=== PATIENT | female | born 1980 | race Caucasian/White ===

== ENCOUNTER 2017-08-28 22:48 | Inpatient (IN) | payer SELFPAY ==
[~2017-08-28] VITALS: Ht 157.5 cm; Wt 99.8 kg
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
[2017-08-28 22:50] VITALS: BP 119/73
--- NOTE | 2017-08-28 23:00 | NUR ---
Pt in bed resting. cooperative. verbally combative but managable. vss.
[2017-08-28] MEDS ORDERED: OLAN20TA1 PO (23:07)
[2017-08-28] MEDS ORDERED: [UNRECOGNIZED DRUG - CODE] PO (23:07)
[2017-08-28] MEDS ORDERED: ALBUTEROL 0.083% 2.5 MG/3 ML NEBU INH ONE (23:25)
[2017-08-28] MEDS ORDERED: PHE25S RC (23:47)
[2017-08-28] MEDS ORDERED: ACET-2858 PO (23:47)
--- NOTE | 2017-08-29 | NUR ---
Pt in bed resting. Food provided. Pt cooperative and calm. VSS. Continue to monitor.
[2017-08-29 00:09] LABS: BASOPHILS # (AUTO) 0.1 K/uL (0.00-0.22); BASOPHILS % (AUTO) 0.7 % (0.0-2.0); EOSINOPHILS # (AUTO) 0.2 K/uL (0-0.4); EOSINOPHILS % (AUTO) 1.9 % (0.0-4.0); HEMATOCRIT 37.7 % (36-48); HEMOGLOBIN 12.5 g/dL (12.0-16.0); LYMPHOCYTES # (AUTO) 2.3 K/uL (2.5-16.5); LYMPHOCYTES % (AUTO) 28.8 % (20.5-51.1); MEAN CORPUSCULAR HEMOGLOBIN 29 pg (27-31); MEAN CORPUSCULAR HGB CONC 33 g/dL (33-37); MEAN CORPUSCULAR VOLUME 87.6 fL (80-94); MONOCYTES # (AUTO) 0.6 K/uL (0.8-1.0); MONOCYTES % (AUTO) 7.5 % (1.7-9.3); NEUTROPHILS # (AUTO) 4.8 K/uL (1.8-7.7); NEUTROPHILS % (AUTO) 61.1 % (42.2-75.2); PLATELET COUNT (AUTO) 243 K/uL (140-450); RED CELL DISTRIBUTION WIDTH 15.3 % (11.6-13.7); WHITE BLOOD COUNT (AUTO) 7.9 K/uL (4.8-10.8)
[2017-08-29 00:17] LABS: ANION GAP 15.5 (8-16); CARBON DIOXIDE 24.6 mmol/L (21-32); CHLORIDE 106 mmol/L (98-107); CREATININE 0.9 mg/dL (0.6-1.3); GFR ARICAN-AMERICAN 90 mL/min (>90); GLUCOSE 73 mg/dL (74-106); POTASSIUM 4.1 mmol/L (3.5-5.1); SODIUM SERUM 142 mmol/L (136-145); UREA NITROGEN, BLOOD 20 mg/dL (7-18)
[2017-08-29 00:22] LABS: ALBUMIN 3.6 g/dL (3.4-5.0); ASPARTATE AMINOTRANSFERASE 17 U/L (15-37); TOTAL BILIRUBIN 0.2 mg/dL (0.0-1.0)
[2017-08-29 00:23] LABS: ACETAMINOPHEN < 0.5 ug/ml (10-30); SALICYLATE < 2.8 mg/dL (2.8-20.0)
--- NOTE | 2017-08-29 01:00 | NUR ---
Pt provided urine sample. Pt states she has no desire to harm herself. Pt remains cooperative and calm. In bed resting. VSS. Continue to monitor.
[2017-08-29 01:11] LABS: BARBITURATE, URINE NEG. ng/ml (NEG <=200); BENZODIAZEPINE, URINE NEG. ng/mL (NEG <=200); CANNABINOID, URINE NEG. ng/mL (NEG <=50); COCAINE, URINE NEG. ng/mL (NEG <=300); OPIATE, URINE NEG. ng/mL (NEG <=2000); PHENCYCLIDINE SCREEN,URINE NEG. ng/mL (NEG <=25)
--- NOTE | 2017-08-29 02:19 | NUR ---
Patient appears to be resting comfortably in bed. Vital Signs within normal limits. Respirations even and unlabored.
--- NOTE | 2017-08-29 02:22 | NUR ---
PT. EATING CRACKERS AT BED SIDE, NO S/SX OF DISTRESS AT THIS TIME.
--- NOTE | 2017-08-29 03:00 | NUR ---
Pt resting with eyes closed. VSS. ER MD aware. Continue to monitor.
--- NOTE | 2017-08-29 03:26 | NUR ---
FAXED PACKET to [facility] intake confirmed FAx recieved , MARY fabric finisher Charge nurse made aware, At this time there are no beds available.
--- NOTE | 2017-08-29 04:04 | NUR ---
Pt resting with eyes closed. VSS. ER MD aware. Continue to monitor.
--- NOTE | 2017-08-29 05:00 | NUR ---
Pt resting with eyes closed. VSS. ER MD aware. Continue to monitor.
[2017-08-29] MEDS ORDERED: ONDANSETRON 4 MG/2 ML VIAL IVP PRN (06:05)
[2017-08-29] MEDS ORDERED: ACETAMINOPHEN 325 MG TAB PO PRN (06:05)
--- NOTE | 2017-08-29 06:47 | NUR ---
Pt refused IV insertion inpreperation for admission. ER MD notified. VSS. Continue to monitor.
--- NOTE | 2017-08-29 07:00 | NUR ---
ADMITTED A FEMALE PT, PT IS ON WHEELCHAIR, AWAKE, ALERT, CALM,AND OBEYS COMMAND. RECEIVED REPORT FROM ER NURSE. POSITIONED PT COMFORTABLE ON THE BED, BED ALARM INITIATED, PT WAS PUT ON A 1:1 SITTER. PT REFUSED TO HAVE VITAL SIGNS TAKEN. PT REFUSED TO ANSWER TO SOME ADMITTING QUESTIONS. NO SIGNS OF DISTRESS NOTED AT THIS TIME. WILL CONTINUE TO MONITOR.
[2017-08-29 07:05] VITALS: BP 91/62
--- NOTE | 2017-08-29 07:05 | NUR ---
Report given and care transfered to [facility] room 109B. Transported via wheel chair with VSS.
--- NOTE | 2017-08-29 08:00 | NUR ---
PT IS LYING ON THE BED WITH A SITTER ON THE BEDSIDE. PT REFUSED TO TAKE HER MEDICATION, COLACE. NO SIGNS OF DISTRESS NOTED AT THIS TIME. WILL CONTINUE TO MONITOR.
--- NOTE | 2017-08-29 08:26 | NUR ---
PT REFUSES EKG
--- NOTE | 2017-08-29 08:31 | NUR ---
[facility] aware of patient and will assist with placement. Packet faxed to [facility] for review. [facility] will continue to follow up.
[2017-08-29] MEDS ORDERED: DOCUSATE SODIUM 100 MG GELCAP PO SCH (09:00)
[2017-08-29 09:54] LABS: APPEARANCE,URINE SL CLOUDY (CLEAR); BILIRUBIN,URINE NEGATIVE (NEGATIVE); BLOOD, URINE NEGATIVE (NEGATIVE); COLOR,URINE YELLOW (YELLOW); LEUKOCYTE ESTERASE ,URINE 2+ (NEGATIVE); NITRITE, URINE NEGATIVE (NEGATIVE); UGLUCOSE NEGATIVE (NEGATIVE)
--- NOTE | 2017-08-29 10:00 | NUR ---
PT IS ASLEEP ON THE BED WITH THE SITTER ON THE BEDSIDE. NO SIGNS OF DISTRESS NOTED. WILL CONTINUE TO MONITOR.
[2017-08-29 10:06] LABS: RBC,URINE 0-5 (RARE) /HPF (0-5)
--- NOTE | 2017-08-29 10:26 | NUR ---
PATIENT HAS BEEN SCREENED AND CATEGORIZED LOW NUTRITION RISK. PATIENT WILL BE SEEN WITHIN 7 DAYS OF ADMISSION. 09/05/[address]
[2017-08-29] MEDS ORDERED: MECLIZINE 25 MG TAB PO PRN (10:35)
[2017-08-29] MEDS ORDERED: NACL 0.9% 1,000 ML IV SCH (10:45)
--- NOTE | 2017-08-29 10:45 | NUR ---
PT REFUSED CT-SCAN STUDY. DR. COLUNGA NOTFIED.
--- NOTE | 2017-08-29 11:45 | NUR ---
PT REFUSED ECHO AND EKG NOTIFIED
[2017-08-29] MEDS ORDERED: LEVOFLOXACIN 250 MG/D5 PREMIX 50 ML IV SCH (12:00)
--- NOTE | 2017-08-29 12:15 | NUR ---
PT IS SEATED ON THE BED, EATING LUNCH.REFUSED VITAL SIGNS CHECKED. NO SIGNS OF DISTRESS NOTED. WILL CONTINUE TO MONITOR.
[2017-08-29] MEDS ORDERED: chlordiazePOXIDE 25 MG CAP PO SCH (13:00)
[2017-08-29] MEDS ORDERED: ALPR0.5T2 PO (15:07)
[2017-08-29] MEDS ORDERED: HALO5TAB21 PO (15:07)
--- NOTE | 2017-08-29 15:14 | NUR ---
PT WAS SCREENED BY , AND TOOK A SHOWER ASSISTED BY THE SITTER. NO SIGNS OF DISTRESS NOTED AT THIS TIME. WILL CONTINUE TO MONITOR.
[2017-08-29] MEDS ORDERED: HALO1TAB21 PO (15:50)
--- NOTE | 2017-08-29 16:10 | NUR ---
PT DISCHARGE INSTRUCTION GIVEN, PT REFUSED TO TAKE DISCHARGE PAPERWORK, WRIST BAND REMOVED, NO IV IN PLACE. PT STABLE UPON DISCHARGE.
--- NOTE | 2017-08-29 16:49 | NUR ---
Spoke to Bryan Serrano. has patients paperwork to review. no beds at this time.
[2017-08-30] MEDS ORDERED: FOLIC ACID 1 MG TAB PO SCH (09:00)
[2017-08-30] MEDS ORDERED: LACTOBACILLUS RHAMNOSUS GG 1 EACH CAP PO SCH (09:00)
[2017-08-30] MEDS ORDERED: THIAMINE 100 MG TAB PO SCH (09:00)
== END 2017-08-29 16:10 | disposition home or self-care (01) | DRG 689 ==
LOC: MED 22:48 → MTU 08-29 05:55
PROVIDERS: ADMIT Family Medicine Sports Medicine; ATTEND Family Medicine Sports Medicine
DX: N39.0 Urinary tract infection, site not specified (principal); G93.41 Metabolic encephalopathy; N17.0 Acute kidney failure with tubular necrosis; F10.239 Alcohol dependence with withdrawal, unspecified; F20.0 Paranoid schizophrenia; F11.20 Opioid dependence, uncomplicated; Z59.0 Homelessness; Z87.891 Personal history of nicotine dependence
CPT/HCPCS: 36415; 80053; 80305; 81001; 81025; 85025; 87086; 99285; G0480; G0482; J7613

== ENCOUNTER 2017-08-29 19:28 | Emergency (ER) | payer SELFPAY ==
[~2017-08-29] VITALS: Ht 162.6 cm; Wt 99.8 kg
[~2017-08-29 19:28] MED LIST: ACET-2858 PO; ALPR0.5T2 PO; HALO1TAB21 PO; HALO5TAB21 PO; OLAN20TA1 PO; PHE25S RC; [UNRECOGNIZED DRUG - CODE] PO
--- NOTE | 2017-08-29 19:30 | NUR ---
Patient JOHNNY LAND, transferred to chair D. RN evaluating patient.
[2017-08-29 19:34] VITALS: BP 130/76
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
[2017-08-29 19:50] VITALS: BP 130/76
--- NOTE | 2017-08-29 19:50 | NUR ---
Patient discharged with v/s stable. Written and verbal after care instructions given and explained. Patient verbalized understanding. Ambulatory with steady gait. All questions addressed prior to discharge. Advised to follow up with PMD.
== END 2017-08-29 19:50 | disposition home or self-care (01) ==
LOC: MED 19:28
DX: Z04.8 Encounter for examination and observation for other specified reasons (principal); F99 Mental disorder, not otherwise specified; Z79.899 Other long term (current) drug therapy; W01.0XXA Fall on same level from slipping, tripping and stumbling without subsequent striking against object, initial encounter; Y93.89 Activity, other specified; Y92.89 Other specified places as the place of occurrence of the external cause; Y99.8 Other external cause status
CPT/HCPCS: 99283

== ENCOUNTER → 2017-11-09 20:00 | Emergency (ER) | payer MEDICAID ==
[~2017-11-09] VITALS: Ht 162.6 cm; Wt 63.5 kg
[2017-11-09 20:00] VITALS: BP 124/92
[~2017-11-09 20:00] MED LIST changes: -ACET-2858 PO; -HALO5TAB21 PO; +LACT10CA PO; +LEVO750T2 PO; -OLAN20TA1 PO; -PHE25S RC
--- NOTE | 2017-11-09 20:00 | NUR ---
PATIENT LEFT WITHOUT BEING SEEN BY DR. FUENTES. NO FURTHER CARE PROVIDED FOR PATIENT.
== END | disposition left against medical advice (07) ==
LOC: MED 20:00
DX: R51 Headache (principal); Z53.21 Procedure and treatment not carried out due to patient leaving prior to being seen by health care provider; W18.39XA Other fall on same level, initial encounter; Y93.89 Activity, other specified; Y99.8 Other external cause status; Y92.89 Other specified places as the place of occurrence of the external cause

== ENCOUNTER 2017-11-09 21:48 | Emergency (ER) | payer MEDICAID ==
[~2017-11-09] VITALS: Ht 165.1 cm; Wt 86.2 kg
[2017-11-09 21:50] VITALS: BP 162/95
--- NOTE | 2017-11-09 21:54 | NUR ---
PATIENT LEFT WITHOUT BEING SEEN BY DR. FUENTES. NO FURTHER CARE PROVIDED FOR PATIENT.
== END 2017-11-09 21:54 | disposition left against medical advice (07) ==
LOC: MED 21:48
DX: F41.9 Anxiety disorder, unspecified (principal); Z53.21 Procedure and treatment not carried out due to patient leaving prior to being seen by health care provider